=== PATIENT | male | born 1945 | race Caucasian/White ===

== ENCOUNTER → 2018-04-19 14:38 | Outpatient (CLI) | payer OTHER, SELFPAY ==
--- NOTE | 2018-04-19 | DI.ECHO.S_ITS ---
[place] [facility] +---------+ : : [address] : [address] : : : : [id number] : : : : Phone: [phone]---------+ Echocardiogram Report + + :Name: CRISTO EL Study Date: 04/19/2018 Height: 68 in : :[facility] Weight: 198 lb : : Gender: Male BSA: 2.0 m2 : :: 1945 Age: 72 yrs BP: 130/70 mmHg: :Reason For Study: CAD : : Performed By: Enma Page : :Referring: LAURA MCKNIGHT : + + Interpretation Summary Mild concentric left ventricular hypertrophy with hyperdynamic function and ejection fraction of 70-75%. Grade I diastolic dysfunction. Mildly dilated right atrium. Mild mitral annular calcification. Mild aortic valve sclerosis. Mildly enlarged ascending aorta. Procedure: A two-dimensional transthoracic echocardiogram with color flow and Doppler was performed. The study quality was technically difficult. There is no prior echocardiogram noted for this patient. A contrast injection of Definity was performed to improve assessment of LV function. The patient was in normal sinus rhythm during the exam. Left Ventricle: There is mild concentric left ventricular hypertrophy. The left ventricle is hyperdynamic. The ejection fraction is estimated to be 70- 75%. There are no focal wall motion abnormalities. Diastolic parameters suggest a relaxation abnormality of the left ventricle, consistent with probable normal filling pressures. Right Ventricle: The right ventricle is normal in size and function. Atria: The left atrial size is normal. The right atrium is mildly dilated. There is no Doppler evidence for an interatrial shunt. Mitral Valve: The mitral valve leaflets appear mildly thickened, but open well. There is mild mitral annular calcification. There is no mitral regurgitation noted. Aortic Valve: The aortic valve is trileaflet. The aortic valve opens well. There is mild aortic valve sclerosis. No aortic regurgitation is present. Tricuspid Valve: The tricuspid valve is normal in structure and function. There is trace tricuspid regurgitation. The right ventricular systolic pressure is estimated to be at least 24 mmHg based on an estimated right atrial pressure of 3 mm Hg. Pulmonic Valve: The pulmonic valve is not well visualized. Great Vessels: The aortic root is normal size. The ascending aorta is mildly enlarged. The pulmonary artery is not well visualized, but is probably normal size. The IVC is of normal diameter and collapses greater than 50% with a sniff. This suggests a low right atrial pressure of 3 mm Hg. Pericardium/ Pleura There is no pericardial effusion. There is no pleural effusion. MMode/2D Measurements & Calculations LVIDd: 4.6 cm LVOT diam: 2.3 cm LVIDs: 3.0 cm Ao root diam: 3.9 cm FS: 35.5 % asc Aorta Diam: 3.8 cm EPSS: 0.32 cm IVSd: 1.3 cm LVPWd: 1.1 cm LV lozano. diameter/BSA (cm/m^2): 2.3 LV sys. diameter/BSA (cm/m^2): 1.5 LA A2 area: 18.4 cm2 RA long axis: 5.2 cm LA A4 area: 19.4 cm2 RA area: 20.7 cm2 LA length (vol): 6.0 cm RA vol: 70.0 ml LA vol: 50.3 ml RA : 34.4 ml/m2 LA vol index: 24.7 ml/m2 RVD1 (basal): 4.0 cm Doppler Measurements & Calculations Ao V2 max: 132.0 cm/sec LVOT Max Jh: 103.7 cm/sec Ao V2 mean: 88.5 cm/sec LV V1 max P.3 mmHg Ao max P.0 mmHg LV V1 VTI: 22.9 cm Ao mean P.4 mmHg VIJI(I,D): 3.4 cm2 Ao V2 VTI: 28.0 cm VIJI(V,D): 3.3 cm2 sev ratio: 0.82 VIJI indexed to BSA (cm^2/m^2): 1.7 MV E max jh: 73.6 cm/sec TR max jh: 229.9 cm/sec MV A max jh: 98.9 cm/sec TR max P.1 mmHg MV E/A: 0.74 PA V2 max: 84.2 cm/sec Med Peak E' Jh: 4.3 cm/sec PA V2 mean: 54.2 cm/sec E/E' med: 17.0 PA mean P.4 mmHg Lat Peak E' Jh: 7.6 cm/sec PA Accel Time: 0.09 sec E/E' lat: 9.6 E/e' average: 13.3 MV dec time: 0.20 sec MV P1/2t: 61.4 msec MV P1/2t max jh: 75.0 cm/sec MVA(P1/2t): 3.6 cm2 Electronically signed by: Marley Bahena on Reading Physician:04/20/2018 10:52 AM
== END ==
PROVIDERS: Visit Provider Physician Assistant
DX: I35.8 Other nonrheumatic aortic valve disorders (principal); I25.10 Atherosclerotic heart disease of native coronary artery without angina pectoris
CPT/HCPCS: 93306; Q9957